=== PATIENT | female | born 1990 | race Two or more races ===

== ENCOUNTER → 2024-05-15 | Emergency (ER) | payer OTHER ==
[~2024-05-15] VITALS: Ht 170.2 cm; Wt 81.6 kg
[~2024-05-15] MED LIST: BUTALB/ACETAMINOPHEN/CAFFEINE 1 TAB TABLET PO ONE; BUTALBIT-ACETA1 EACH PO; DEXAMETHASONE SODIUM PHOSPHATE 4 MG/ML VIAL IM ONE; KETOROLAC TROMETHAMINE 30 MG VIAL IV ONE
[2024-05-15 12:51] LABS: HEMATOCRIT 40.3 % (36.0-45.00); HEMOGLOBIN 14.1 g/dL (12.0-15.00); MEAN CELL VOLUME 88.2 fL (80.00-100.00); MEAN CORPUSCULAR HEMOGLOBIN 30.8 pg (27.00-32.0); MEAN CORPUSCULAR HGB CONC 34.9 g/dl (32.0-36.0); PLATELET COUNT 320 K/uL (150-450); RED BLOOD COUNT 4.57 M/uL (4.00-6.00); RED CELL DISTRIBUTION WIDTH 13.1 % (11.5-14.5)
== END | disposition home or self-care (01) ==
LOC: ER 12:00
PROVIDERS: General Practice
DX: R51.9 Headache, unspecified (principal); Z20.822 Contact with and (suspected) exposure to COVID-19; Z88.1 Allergy status to other antibiotic agents